=== PATIENT | male | born 1970 | race Caucasian/White ===

== ENCOUNTER 2019-11-23 00:45 | Emergency (ER) | payer MEDICAID ==
[~2019-11-23] VITALS: Ht 175.3 cm; Wt 70.5 kg
[2019-11-23] MEDS ORDERED: LIDOcaine 1% W/epiNEPHrine 1:200,000 10ml vial IJ ONE (01:20)
[2019-11-23 02:01] VITALS: BP 146/92
== END 2019-11-23 02:03 | disposition home or self-care (01) ==
LOC: ER 00:45
DX: S41.111A Laceration without foreign body of right upper arm, initial encounter (principal); G89.29 Other chronic pain; F17.200 Nicotine dependence, unspecified, uncomplicated; Z79.899 Other long term (current) drug therapy; W26.0XXA Contact with knife, initial encounter; Y93.89 Activity, other specified; Y92.89 Other specified places as the place of occurrence of the external cause; Y99.8 Other external cause status
CPT/HCPCS: 96374; 99283

== ENCOUNTER 2021-07-14 11:23 | Emergency (ER) | payer MEDICAID ==
[~2021-07-14] VITALS: Ht 175.3 cm; Wt 65.9 kg
[2021-07-14 11:33] VITALS: BP 143/90
== END 2021-07-14 13:55 | disposition home or self-care (01) ==
LOC: ER 11:24
DX: S06.899A Other specified intracranial injury with loss of consciousness of unspecified duration, initial encounter (principal); M48.00 Spinal stenosis, site unspecified; G89.29 Other chronic pain; M54.9 Dorsalgia, unspecified; F12.10 Cannabis abuse, uncomplicated; X58.XXXA Exposure to other specified factors, initial encounter; Y93.89 Activity, other specified; Y92.89 Other specified places as the place of occurrence of the external cause; Y99.8 Other external cause status
CPT/HCPCS: 70450; 72125; 99285

== ENCOUNTER 2025-08-15 09:56 | Outpatient (CLI) | payer MEDICAID ==
--- NOTE | 2025-08-15 11:32 | RADIOLOGY REPORT ---
Procedure: CT CT CHEST LOW DOSE Reason for study/Clinical History: ENCNTR SCREEN FOR MALIGNANT NEOPLASM OF RESPIRATORY ORGANS COMPARISON: None TECHNIQUE: Multidetector CT of the chest was performed from the lung apices to the upper abdomen without the use of intravenous contract. Axial, coronal and sagittal multiplanar reformats were performed. Radiation Dose Information: CT Dose: CTDI volume is 2.8 mGy. Dose-length product is 105.3 mGy*cm The dose indicators for CT are the volume Computed Tomography (CT) Dose Index (CTDIvol) and the Dose Length Product (DLP), and are measured in units of mGy and mGy-cm, respectively. These indicators are not patient dose, but values generated from the CT scanner acquisition factors. The report includes radiation exposure data for exposures received during this examination. FINDINGS: Lower neck: Normal thyroid. Lungs: No focal consolidation. Moderate centrilobular emphysema. 0.3 cm nodule in the left upper lobe, image 77. 0.5 cm nodule in the left upper lobe, image 206. Benign calcified granuloma in the left lower lobe measures 0.5 cm. Heart/Vascular Structures: Normal heart size. No pericardial effusion. Lymph Nodes: No adenopathy Pleura: No pleural effusion or significant pneumothorax. Musculoskeletal: No acute osseous abnormality. Soft tissues: Normal. Upper abdomen: Limited portions of the upper abdomen are unremarkable. IMPRESSION: Moderate centrilobular emphysema. Pulmonary nodules in the left upper lobe measuring up to 0.5 cm. LUNG RADS Category 2: Continue annual screening with LDCT
== END 2025-08-15 23:59 | disposition home or self-care (01) ==
LOC: RAD 09:56
DX: Z12.2 Encounter for screening for malignant neoplasm of respiratory organs (principal); R91.8 Other nonspecific abnormal finding of lung field; I25.10 Atherosclerotic heart disease of native coronary artery without angina pectoris; E04.2 Nontoxic multinodular goiter; F17.210 Nicotine dependence, cigarettes, uncomplicated
CPT/HCPCS: 71271